=== PATIENT | male | born 1970 | race Caucasian/White ===

== ENCOUNTER 2016-07-11 09:20 | Outpatient (CLI) | payer OTHER ==
--- NOTE | 2016-07-11 10:57 | DIAGNOSTIC IMAGING REPORT ---
PROCEDURE: MR LUMBAR SPINE W/O CONTRAST INDICATION: BACK PAIN TECHNIQUE: Noncontrast T1, T2, and STIR sagittal images. T1 and T2 axial images. COMPARISON: None. FINDINGS: Normal alignment without fracture. Mild degenerative changes and Schmorl's nodes of throughout the lumbar spine. 1.1 cm L2 lesion with increased C1 and T2 signal suggestive of a hemangioma. Normal conus. Paraspinal soft tissues are unremarkable. L1-2: Normal appearance. L2-3: Normal appearance. L3-4: Normal appearance. L4-5: Minor left foraminal disc bulging and facet arthropathy resulting in mild left foraminal stenosis. There is no spinal stenosis. L5-S1: Normal disc. Mild facet arthropathy. IMPRESSION: 1. Mild degenerative changes 2. L2 probable bony hemangioma 3. Mild left L4-5 foraminal stenosis
== END 2016-07-11 23:00 | disposition home or self-care (01) ==
LOC: MRI SRH 09:20
DX: M48.06 Spinal stenosis, lumbar region (principal)